=== PATIENT | male | born 1955 | race Two or more races ===

== ENCOUNTER 2024-08-19 14:59 | Inpatient (IN) | payer MEDICARE, MEDICAID ==
[~2024-08-19] VITALS: Ht 165.1 cm; Wt 85.0 kg
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
--- NOTE | 2024-08-19 15:49 | ECG ---
[facility] Test Date: 2024-08-19 Test Time: 15:48:59 Pat Name: DANIKA ESCOBAR Department: ER Room: [address] [place] [address] Gender: M Director Of Clinical Applications: ROMAINE : 1955 Requested By: JESSICA BEAVER Order Number: [id number] Reading MD: Cyrus Nava Measurements Intervals [place] Rate: 69 P: 35 [place]: 174 QRS: -8 QRSD: 149 T: 2 QT: 434 QTc: 465 Interpretive Statements Sinus rhythm Right bundle branch block LVH by voltage Baseline wander in lead(s) I,II,aVR,aVL,V3,V4,V5,V6 Electronically Signed On 08-20-2024 18:26:43 PST by Cyrus Nava Please click the below link to view image of tracing.
[2024-08-19 16:37] LABS: Basophils # (auto) 0 10 ^3/uL (0-0.2); Basophils % (auto) 0.5 % (0.0-2.0); Eosinophils # (auto) 0.1 10 ^3/uL (0-0.8); Eosinophils % (auto) 1.6 % (0.0-7.0); Hematocrit 52.4 % (41.0-53.0); Hemoglobin 17.4 g/dL (13.5-17.5); Lymphocytes # (auto) 1.7 10 ^3/uL (0.4-5.4); Lymphocytes % (auto) 21.9 % (10.0-50.0); Mean Corpuscular Hemoglobin 30.2 pg (28.0-32.0); Mean Corpuscular Hgb Conc. 33.2 g/dL (32.0-36.0); Monocytes # (auto) 0.8 10 ^3/uL (0-1.3); Monocytes % (auto) 10.4 % (0.0-12.0); Neutrophils # (auto) 5.2 10 ^3/uL (1.6-8.6); Neutrophils % (auto) 65.6 % (37.0-80.0); Nucleated Red Blood Cells % 0.1 %; Platelet Count (auto) 179 10^3/uL (140-450); Red Blood Cells 5.76 10^6/uL (4.5-5.90); Red Cell Distribution Width 14.6 % (11.8-14.3)
[2024-08-19 16:53] LABS: Chloride 105 mmol/L (98-107); Potassium 4.3 mmol/L (3.5-5.1); Sodium 141 mmol/L (136-145)
[2024-08-19 16:54] LABS: Anion Gap 7 (5-15); Carbon Dioxide 29 mmol/L (20-31)
[2024-08-19 16:59] LABS: BUN/Creatinine Ratio 14.3 (10.0-20.0); Blood Urea Nitrogen 15 mg/dL (9-23); Glucose 103 mg/dL (74-106)
[2024-08-19 17:07] LABS: Calcium 10.5 mg/dL (8.7-10.4)
--- NOTE | 2024-08-19 17:24 | DVH ---
Chest x-ray Technique: PA and lateral views CLINICAL INDICATION: Shortness of breath FINDINGS: Heart size is enlarged. Aorta is tortuous. No infiltrates or effusions. Scoliosis with de generative changes in the spine IMPRESSION: 1. No acute cardiopulmonary pathology
[2024-08-20] MEDS ORDERED: HYDROcodone-ACET 5/325MG TAB PO PRN
[2024-08-20] MEDS ORDERED: ACETAMINOPHEN 325 MG TAB PO PRN
[2024-08-20] MEDS ORDERED: IPRATROPIUM BROM 0.5 MG/2.5ML INH SOL NEB SCH (00:15)
[2024-08-20] MEDS ORDERED: ALBUTEROL SULF 2.5 MG/0.5ML(0.5%) NEB SOLN NEB SCH (00:15)
--- NOTE | 2024-08-20 00:31 | DVHHPRES ---
History of Present Illness Resident Creating Document: DICK GARG History of Present Illness This is a 69-year-old male with past medical history of hypertension, COPD who presented to the ED with three days of shortness of breath that worsened recently prompting this visit. Patient states recently he has been having shortness of breath associated with cough especially when lying down in bed. The patient stated that he just moved to [facility] from [place] and that her daughter was having flu-like symptoms recently. The patient admits that has been two weeks without taking any blood pressure medications. Initial labs showed an hemoglobin of 17.4 and hematocrit of 52.4 otherwise CMP was grossly unremarkable. Troponins came back negative and BNP was normal range. Initial chest x-ray was grossly unremarkable without evidence of clear consolidations. We will order COVID Angelique antigen test and influenza test. We will start the patient on IV methylprednisolone 40 mg b.i.d., azithromycin and respiratory therapy with albuterol and ipratropium. We will admit the patient for further assessment and management. Medications: Patient states that takes blood pressure medications at home but does not remember the name. Cardiovascular: HTN Pulmonary: COPD Smoke: Quit ALCOHOL: none Drugs: None Lives: with Family Domestic Violence: Neg Review of Systems Constitutional: No: Fever, Chills, Sweats, Weakness, Malaise, Other Eyes: No: Pain, Vision change, Conjunctivae inflammation, Eyelid inflammation, Other, Redness ENT: No: Ear pain, Ear discharge, Nose pain, Nose discharge, Nose congestion, Mouth pain, Mouth swelling, Throat pain, Throat swelling, Other Respiratory: Cough, Shortness of breath, SOB with excertion; No: Dry, Wheezing, Hemoptysis, Pleuritic Pain, Sputum, Wheezing, Other Cardiovascular: No: Chest Pain, Palpitations, Orthopnea, Paroxysmal Noc. Dyspnea, Edema, Lt Headedness, Other Gastrointestinal: No: Nausea, Vomiting, Abdominal Pain, Diarrhea, Constipation, Melena, Hematochezia, Other Genitourinary: No Dysuria, No Frequency, No Incontinence, No Hematuria, No Retention, No Other Musculoskeletal: No: other, neck pain, shoulder pain, arm pain, back pain, hand pain, leg pain, foot pain Skin: No: Rash, Lesions, Jaundice, Bruising, Other Neurological: No: Weakness, Numbness, Incoordination, Change in speech, Confusion, Seizures, Other Allergies: Coded Allergies: Penicillins (Verified Allergy, Unknown, 08/19/24) Medications Current Medications Medications Dose Ordered Sig/Micheal Route Start Time Stop Time Status Last Admin Dose Admin Acetaminophen 650 mg Q6HP PRN PO 08/20/24 00:00 UNV Acetaminophen/ Hydrocodone Bitart 1 tab Q4HP PRN PO 08/20/24 00:00 UNV Exam Vital Signs Vital Signs Date Time Temp Pulse Resp B/P (MAP) Pulse Ox O2 Delivery O2 Flow Rate FiO2 08/19/24 16:09 69 08/19/24 15:15 97.4 20 174/103 (126) 98 155/103 (120) General Appearance: Alert, Oriented X3, Cooperative, No acute distress HEENT: Atraumatic, PERRLA, EOMI, Mucous membr. moist/pink Respiratory: Clear to auscultation, Normal air movement Cardiovascular: Regular rate, Normal S1, Normal S2, No murmurs Abdominal: Normal bowel sounds, Soft, No tenderness, No hepatospenomegaly Extremities: No clubbing, No cyanosis, No edema, Normal pulses, No tenderness/swelling Skin: No rashes, No breakdown, No significant lesion Neuro: Normal gait, Normal speech, Strength at 5/5 X4 ext, Normal tone, Sensation intact, Cranial nerves 3-12 NL, Reflexes 2+ Psych/Mental Status: Mental status NL, Mood NL Labs/Xrays Labs Test 08/19/24 17:34 08/19/24 16:12 Range/Units Troponin I High Sensitivity 17 </=54 ng/L White Blood Count 8.0 4.4-10.8 10^3/uL Red Blood Count 5.76 4.5-5.90 10^6/uL Hemoglobin 17.4 13.5-17.5 g/dL Hematocrit 52.4 41.0-53.0 % Mean Corpuscular Volume 91.0 80.0-100.0 fL Mean Corpuscular Hemoglobin 30.2 28.0-32.0 pg Mean Corpuscular Hemoglobin Concent 33.2 32.0-36.0 g/dL Red Cell Distribution Width 14.6 H 11.8-14.3 % Platelet Count 179 140-450 10^3/uL Mean Platelet Volume 8.9 6.9-10.8 fL Neutrophils (%) (Auto) 65.6 37.0-80.0 % Lymphocytes (%) (Auto) 21.9 10.0-50.0 % Monocytes (%) (Auto) 10.4 0.0-12.0 % Eosinophils (%) (Auto) 1.6 0.0-7.0 % Basophils (%) (Auto) 0.5 0.0-2.0 % Neutrophils # (Auto) 5.2 1.6-8.6 10 ^3/uL Lymphocytes # (Auto) 1.7 0.4-5.4 10 ^3/uL Monocytes # (Auto) 0.8 0-1.3 10 ^3/uL Eosinophils # (Auto) 0.1 0-0.8 10 ^3/uL Basophils # (Auto) 0 0-0.2 10 ^3/uL Nucleated Red Blood Cells 0.1 % Sodium Level 141 136-145 mmol/L Potassium Level 4.3 3.5-5.1 mmol/L Chloride Level 105 98-107 mmol/L Carbon Dioxide Level 29 20-31 mmol/L Anion Gap 7 5-15 Blood Urea Nitrogen 15 9-23 mg/dL Creatinine 1.05 0.700-1.30 mg/dL Glomerular Filtration Rate Calc 78 >90 mL/min BUN/Creatinine Ratio 14.3 10.0-20.0 Serum Glucose 103 74-106 mg/dL Calcium Level 10.5 H 8.7-10.4 mg/dL B-Type Natriuretic Peptide 42.50 0-100 pg/mL Assessment/Plan Assessment/Plan Assessment/Plan Acute respiratory distress likely due to COPD exacerbation R/O CHF -Initial chest x ray was grossly clear -Start methylprednisolone 40 mg IV b.i.d. -start azithromycin -respiratory therapy with albuterol and ipratropium med nebs -ordered influenza A and B test, came back negative -ordered COVID Nanda antigen test, came back negative -Trops came back negative and BNP was on normal range at 42.50 (No hx of CHF) Primary Hypertension -start losartan 50 mg p.o. daily -start amlodipine 10 mg p.o. daily -monitor blood pressure Goals of care discussed with the patient at bedside, full code Plan discussed with Dr. Santos Plan discussed with: Patient My Orders Orders - DICK GARG RESIDENT Procedure Category Date Status Time Admit ADMIT 1/7/25 Transmitted 00:00 Code Status CODE 08/20/24 Transmitted 00:00 Vital Signs [facility] 08/20/24 In Process 00:00 Review Orders With DAVIS 08/20/24 In Process Adm. 00:00 Regular Diet DIET 08/20/24 Transmitted Breakfast Acetaminophen Tablet PHA 08/20/24 Logged (Tylenol Tablet) 00:00 Notify Md Of Changes [facility] 08/20/24 In Process From Base 00:00 Advance Directive DAVIS 08/20/24 In Process 00:00 Urinalysis LAB 08/20/24 Logged 00:00 Lipid Panel LAB 08/20/24 Logged 00:00 Patient Condition ORDERS 08/20/24 Transmitted 00:00 Allergies DAVIS 08/20/24 In Process 00:00 Hydrocodone-Acet PHA 08/20/24 Logged 5/325mg Tab (Watson 00:00 Drug Screen LAB 08/20/24 Logged 00:00 Ambulate Every 4hours DAVIS 08/20/24 In Process 00:00 Hemoglobin A1c LAB 08/20/24 Logged 00:00 Azithromycin 500mg/ PHA 08/20/24 Transmitted 250ml (Zithromax 50 00:15 Methylprednisolone PHA 08/20/24 Transmitted Sod Succ (Solu Medrol 00:15 Albuterol Medneb PHA 08/20/24 Transmitted (Ventolin Medneb) 00:15 Ipratropium Medneb PHA 08/20/24 Transmitted (Atrovent Medneb) 00:15 Date of Service: Aug 20, 2024 Billing Provider: BRYNN SANTOS MD Common Visit Codes: 82384-QNTEVLI INP/OBS CARE (HIGH) Secondary Visit Codes: 46542-[id number] CARE PLAN 30 MINUTES DICK GARG RESIDENT Aug 20, 2024 00:31 BRYNN SANTOS MD Aug 20, 2024 18:48
[2024-08-20 00:44] VITALS: PULSE 105; O2SAT 95
[2024-08-20] MEDS: AZITHROMYCIN 500MG/ 250ML 250 ML IV SCH (00:50)
[2024-08-20] MEDS: amLODIPine BESYLATE 5 MG TAB PO SCH (00:50)
[2024-08-20] MEDS: methylPREDNISolone SOD SUCC 40 MG/ML VL IV SCH (00:50)
[2024-08-20 01:34] VITALS: BP 163/97; PULSE 80; RESP 18; TEMP 97.7; O2SAT 96
[2024-08-20 01:44] VITALS: BP 157/107; PULSE 105; RESP 18; TEMP 98.3; O2SAT 95
[2024-08-20 03:51] LABS: Rapid Influenza A Negative (Negative); Rapid Influenza B Negative (Negative)
[2024-08-20 03:52] LABS: COVID19 ANTIGEN SOFIA FIA NEGATIVE (NEGATIVE)
[2024-08-20] MEDS ORDERED: IPRATROPIUM BROM 0.5 MG/2.5ML INH SOL NEB PRN (06:00)
[2024-08-20] MEDS ORDERED: ALBUTEROL SULF 2.5 MG/0.5ML(0.5%) NEB SOLN NEB PRN (06:00)
[2024-08-20] MEDS ORDERED: LOSARTAN POTASSIUM 50 MG TAB PO SCH (10:00)
== END 2024-08-20 08:30 | disposition left against medical advice (07) | DRG 192 ==
LOC: ER 14:59 → OVERFLOW 08-20
PROVIDERS: ADMIT Internal Medicine; ATTEND Internal Medicine
DX: J44.1 Chronic obstructive pulmonary disease with (acute) exacerbation (principal); I11.0 Hypertensive heart disease with heart failure; I50.9 Heart failure, unspecified; I51.3 Intracardiac thrombosis, not elsewhere classified; Z20.822 Contact with and (suspected) exposure to COVID-19; Z53.29 Procedure and treatment not carried out because of patient's decision for other reasons; Z87.891 Personal history of nicotine dependence; Z88.0 Allergy status to penicillin
CPT/HCPCS: 36415; 71046; 80048; 83880; 84484; 85025; 87426; 87804; 93005; 99291; G0378

== ENCOUNTER 2024-08-23 11:41 | Emergency (ER) | payer MEDICARE, MEDICAID ==
[~2024-08-23] VITALS: Ht 165.1 cm; Wt 89.3 kg
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
[2024-08-23] MEDS ORDERED: CLOT1CRE56 TOP (13:09)
[2024-08-23] MEDS ORDERED: ALBUAER3 IN (13:09)
[2024-08-23 13:42] VITALS: BP 161/104; PULSE 80; RESP 16; O2SAT 97
== END 2024-08-23 13:45 | disposition home or self-care (01) ==
LOC: ER 11:41
DX: N48.1 Balanitis (principal); J44.9 Chronic obstructive pulmonary disease, unspecified; I10 Essential (primary) hypertension; Z88.0 Allergy status to penicillin; Z87.891 Personal history of nicotine dependence

== ENCOUNTER 2024-08-25 10:38 | Inpatient (IN) | payer MEDICARE, MEDICAID ==
[~2024-08-25] VITALS: Ht 165.1 cm; Wt 77.2 kg
[~2024-08-25 10:38] MED LIST: ALBUAER3 IN; CLOT1CRE56 TOP
--- NOTE | 2024-08-25 11:33 | ED.PDOC ---
SOB-HPI HPI Comments 69 y.o male with PMHx of COPD and HTN, presents to the ED for a chief complaint of SOB that started yesterday. Patient reports recently being seen at this ED a couple days ago with same complaint, states he was prescribed medication that has not relieved his SOB and mentions he is not on any home oxygen either. Patient presents with a SPO2 of 95% on room air. Patient states SOB worsens when laying flat and on exertion. He denies any coughs, nausea, vomiting, chest pain, fever or chills. Chief Complaint: Shortness of Breath Time Seen by MD: 11:22 Primary Care Provider: UNKNOWN Reviewed notes: Nurses Notes, Medications, Allergies Information Source: Patient Mode of Arrival: Ambulatory Severity: Moderate Timing: Days (1) Context: With Light Exertion, While Asleep PE Risk Factors: None History of: COPD Modifying Factors: Nothing; Exertion, Laying flat Associated Signs and Symptoms: None Past Medical History PAST MEDICAL HISTORY: COPD, HTN Surgical History: Denies all surgeries Family History Family History: Reviewed,noncontributory to illness, Unknown Social History Smoker: Quit Less Than 1 Year Alcohol: Denies ETOH Use Drugs: Denies Drug Use Lives In: Home Constitutional: denies: chills, diaphoresis, fatigue, fever, malaise, sweats, weakness, others EENTM: denies: blurred vision, double vision, ear bleeding, ear discharge, ear drainage, ear pain, ear ringing, eye pain, eye redness, hearing loss, mouth pain, mouth swelling, nasal discharge, nose bleeding, nose congestion, nose pain, photophobia, tearing, throat pain, throat swelling, voice changes, others Respiratory: reports: SOB at rest, shortness of breath, SOB with excertion; denies: cough, hemoptysis, orthopnea, stridor, wheezing, others Cardiovascular: denies: chest pain, dizzy spells, diaphoresis, Dyspnea on exertion, edema, irregular heart beat, left arm pain, lightheadedness, palpitations, PND, syncope, others Gastrointestinal: denies: abdomen distended, abdominal pain, blood streaked bowels, constipated, diarrhea, dysphagia, difficulty swallowing, hematemesis, melena, nausea, poor appetite, poor fluid intake, rectal bleeding, rectal pain, vomiting, others Genitourinary: denies: burning, dysuria, flank pain, frequency, hematuria, incontinence, penile discharge, penile sore, pain, testicle pain, testicle swelling, urgency, others Neurological: denies: dizziness, fainting, headache, left sided numbness, left sided weakness, numbness, paresthesia, pre-existing deficit, right sided numbness, right sided weakness, seizure, speech problems, tingling, tremors, weakness, others Musculoskeletal: denies: back pain, gout, joint pain, joint swelling, muscle pain, muscle stiffness, neck pain, others Integumetry: denies: bruises, change in color, change in hair/nails, dryness, laceration, lesions, lumps, rash, wounds, others Allergic/Immunocompromised: denies: Difficulty Healing, Frequent Infections, Hives, Itching, others Hematologic/Lymphatic: denies: anemia, blood clots, easy bleeding, easy bruising, swollen glands, others Endocrine: denies: excessive hunger, excessive sweating, excessive thirst, excessive urination, flushing, intolerance to cold, intolerance to heat, unexplained weight gain, unexplained weight loss, others Psychiatric: denies: anxiety, bipolar disorder, depression, hopeless, panic disorder, schizophrenia, sleepless, suicidal, others All Other Systems: Reviewed and Negative Physical Exam General Appearance: Moderate Distress HEENT: Normal ENT Inspection, Pharynx Normal, TMs Normal Neck: Full Range of Motion, Non-Tender, Normal, Normal Inspection Respiratory: Chest Non-Tender, Lungs Clear, No Accessory Muscle Use, No Respiratory Distress, Normal Breath Sounds Cardiovascular: No Edema, No JVD, No Murmur, No Gallop, Normal Peripheral Pulses, Regular Rate/Rhythm Breast Exam: Deferred Gastrointestinal: No Organomegaly, Non Tender, No Pulsatile Mass, Normal Bowel Sounds, Soft Genitalia: Deferred Pelvic: Deferred Rectal: Deferred Extremities: No calf tenderness, Normal capillary refill, No pedal edema Musculoskeletal : Apperance: Normal Neurologic: Alert, crisis counselor II-XII nml as Tested, No Motor Deficits, Normal Affect, Normal Mood, No Sensory Deficits Cerebellar Function: Normal Reflexes: Normal Skin: Dry, Normal Color, Warm Lymphatic: No Adenopathy EKG EKG : Pulse Rate (adult): 72 Edmonds: Normal Cardiac Rhythm: NSR Block: RBBB ST: Nonsp Was a procedure done? Was a procedure done?: No Differential Dx Differential Diagnosis: Asthma, Bronchitis, COPD, Pneumonia, Respiratory Distress, URI X-Ray, Labs, Meds, VS Vital Signs Date Time Temp Pulse Resp B/P (MAP) Pulse Ox O2 Delivery O2 Flow Rate FiO2 08/25/24 15:02 97.8 70 18 141/100 (114) 97 97.8 08/25/24 11:40 72 08/25/24 11:12 98.6 82 18 183/108 (133) 95 08/25/24 11:11 72 Lab Test 08/25/24 14:19 08/25/24 13:12 Range/Units Troponin I High Sensitivity Pending 15 </=54 ng/L White Blood Count 6.0 4.4-10.8 10^3/uL Red Blood Count 5.49 4.5-5.90 10^6/uL Hemoglobin 16.9 13.5-17.5 g/dL Hematocrit 49.9 41.0-53.0 % Mean Corpuscular Volume 90.8 80.0-100.0 fL Mean Corpuscular Hemoglobin 30.7 28.0-32.0 pg Mean Corpuscular Hemoglobin Concent 33.8 32.0-36.0 g/dL Red Cell Distribution Width 14.5 H 11.8-14.3 % Platelet Count 192 140-450 10^3/uL Mean Platelet Volume 8.8 6.9-10.8 fL Neutrophils (%) (Auto) 61.8 37.0-80.0 % Lymphocytes (%) (Auto) 25.2 10.0-50.0 % Monocytes (%) (Auto) 10.0 0.0-12.0 % Eosinophils (%) (Auto) 2.2 0.0-7.0 % Basophils (%) (Auto) 0.8 0.0-2.0 % Neutrophils # (Auto) 3.7 1.6-8.6 10 ^3/uL Lymphocytes # (Auto) 1.5 0.4-5.4 10 ^3/uL Monocytes # (Auto) 0.6 0-1.3 10 ^3/uL Eosinophils # (Auto) 0.1 0-0.8 10 ^3/uL Basophils # (Auto) 0 0-0.2 10 ^3/uL Nucleated Red Blood Cells 0.1 % Sodium Level 141 136-145 mmol/L Potassium Level 4.8 3.5-5.1 mmol/L Chloride Level 106 98-107 mmol/L Carbon Dioxide Level 29 20-31 mmol/L Anion Gap 6 5-15 Blood Urea Nitrogen 14 9-23 mg/dL Creatinine 0.95 0.700-1.30 mg/dL Glomerular Filtration Rate Calc 88 >90 mL/min BUN/Creatinine Ratio 14.7 10.0-20.0 Serum Glucose 116 H 74-106 mg/dL Calcium Level 10.6 H 8.7-10.4 mg/dL B-Type Natriuretic Peptide 37.88 0-100 pg/mL The patient has an IV Hep-Lock in place The CBC and chemistry panel are within normal limits The troponin level x1 is negative The patient was also hypertensive and is being given clonidine for the elevated blood pressure The other diagnosis is accelerated hypertension The patient was being admitted The chest x-ray shows: Cardiomegaly but no sign of any acute disease Images Reviewed?: Images reviewed and evaluated by me Time of 1ST Reevaluation: 11:32 Reevaluation 1ST: Unchanged Patient Education/Counseling: Diagnosis, Treatment, Prognosis Family Education/Counseling: No Family Present Departure 1 Departure Time of Disposition: 15:04 Impression: Primary Impression: Acute respiratory distress Disposition: 09 ADMITTED INPATIENT Admit to: Tele Condition: Fair Critical Care Note Critical Care Time?: No Stability Stability form required: Yes Unstable for transfer: Telemetry monitoring (Telemetry monitoring required), ED Physician Assesment (Clinical assesment) I personally scribed for JESSICA BEAVER MD ([email or web address]) on 08/25/24 at 11:33. Electronically submitted by Hellen Nickerson ([facility]). JESSICA BEAVER MD Aug 25, 2024 11:33
--- NOTE | 2024-08-25 11:34 | ECG ---
[facility] Test Date: 2024-08-25 Test Time: 11:11:14 Pat Name: DANIKA ESCOBAR Department: ER Room: Gender: M Beta Tester: VASYL : 1955 Requested By: JESSICA BEAVER Order Number: [id number] Reading MD: Measurements Intervals Humble Rate: 72 P: 26 GA: 176 QRS: -2 QRSD: 135 T: 4 QT: 400 QTc: 438 Interpretive Statements Sinus rhythm Right bundle branch block LVH by voltage Inferior infarct, old Lateral leads are also involved Baseline wander in lead(s) V5 Please click the below link to view image of tracing.
--- NOTE | 2024-08-25 12:20 | DVH ---
CHEST RADIOGRAPH Indication: sob Technique: Frontal and lateral view of the chest was obtained Comparison: XY CHEST TWO VIEWS ROUTINE on DOS: 08/19/24 FINDINGS: Lines and Tubes: None Lungs: Clear Pleura: No effusion. No pneumothorax. Cardiomediastinal contours: Enlarged. Bones: Osseous degenerative changes. IMPRESSION: 1. No evidence of acute disease. 2. Cardiomegaly.
[2024-08-25 13:58] LABS: Basophils # (auto) 0 10 ^3/uL (0-0.2); Basophils % (auto) 0.8 % (0.0-2.0); Eosinophils # (auto) 0.1 10 ^3/uL (0-0.8); Eosinophils % (auto) 2.2 % (0.0-7.0); Hematocrit 49.9 % (41.0-53.0); Hemoglobin 16.9 g/dL (13.5-17.5); Lymphocytes # (auto) 1.5 10 ^3/uL (0.4-5.4); Lymphocytes % (auto) 25.2 % (10.0-50.0); Mean Corpuscular Hemoglobin 30.7 pg (28.0-32.0); Mean Corpuscular Hgb Conc. 33.8 g/dL (32.0-36.0); Mean Corpuscular Volume 90.8 fL (80.0-100.0); Monocytes # (auto) 0.6 10 ^3/uL (0-1.3); Neutrophils # (auto) 3.7 10 ^3/uL (1.6-8.6); Neutrophils % (auto) 61.8 % (37.0-80.0); Nucleated Red Blood Cells % 0.1 %; Platelet Count (auto) 192 10^3/uL (140-450); Red Blood Cells 5.49 10^6/uL (4.5-5.90); Red Cell Distribution Width 14.5 % (11.8-14.3)
[2024-08-25 14:02] LABS: Chloride 106 mmol/L (98-107); Potassium 4.8 mmol/L (3.5-5.1); Sodium 141 mmol/L (136-145)
[2024-08-25 14:03] LABS: Anion Gap 6 (5-15); Calcium 10.6 mg/dL (8.7-10.4); Carbon Dioxide 29 mmol/L (20-31)
[2024-08-25 14:09] LABS: BUN/Creatinine Ratio 14.7 (10.0-20.0); Blood Urea Nitrogen 14 mg/dL (9-23)
[2024-08-25 14:31] LABS: Glucose 116 mg/dL (74-106)
[2024-08-25] MEDS ORDERED: ALBUTEROL SULF 2.5 MG/0.5ML(0.5%) NEB SOLN NEB PRN (20:00)
[2024-08-25] MEDS ORDERED: TEMAZEPAM 15 MG CAP PO PRN (20:00)
[2024-08-25] MEDS ORDERED: IPRATROPIUM BROM 0.5 MG/2.5ML INH SOL NEB PRN (20:00)
[2024-08-25] MEDS ORDERED: ONDANSETRON HCL 4 MG/2 ML VIAL IV PRN (20:00)
[2024-08-25] MEDS ORDERED: ACETAMINOPHEN 325 MG TAB PO PRN (20:00)
[2024-08-25 20:23] VITALS: PULSE 103; RESP 16; O2SAT 98
[2024-08-25 21:00] VITALS: BP 147/102; PULSE 95; TEMP 98.2; O2SAT 95
[2024-08-25] MEDS: FUROSEMIDE 40 MG TAB PO ONE (21:06)
[2024-08-25 21:53] VITALS: BP 156/93; PULSE 95; RESP 18; TEMP 97.8; O2SAT 96
[2024-08-25 22:08] VITALS: BP 156/93; PULSE 88; RESP 16; O2SAT 97
--- NOTE | 2024-08-25 22:42 | DVHHP2 ---
History of Present Illness Reason for Visit: Shortness of breath History of Present Illness 69-year-old male presents for evaluation of shortness for breath. Patient reports a two day history mouth worsening shortness for breath with mild exertion. Does have a history of COPD. Reports inhalers not helping with the symptoms. Denies chest pain or palpitations. No nausea or vomiting. No cough or fever. Past Medical History Hypertension and COPD Past Surgical History Denies Family History Noncontributory Smoke: No ALCOHOL: none Drugs: None Lives: with Family Review of Systems Review of Systems Review of systems are currently negative otherwise addressed in HPI. Allergies: Coded Allergies: Penicillins (Verified Allergy, Unknown, 08/19/24) Medications Current Medications Medications Dose Ordered Sig/Micheal Route Start Time Stop Time Status Last Admin Dose Admin Amlodipine Besylate 10 mg DAILY PO 08/26/24 10:00 Furosemide 20 mg DAILY PO 08/26/24 10:00 Albuterol 2.5 mg Q6HPRN PRN NEB 08/25/24 20:00 Ipratropium Needles 0.5 mg Q6HPRN PRN NEB 08/25/24 20:00 Losartan Potassium 50 mg DAILY PO 08/26/24 10:00 Temazepam 15 mg QHSP PRN PO 08/25/24 20:00 Ondansetron HCl 4 mg Q4HP PRN IV 08/25/24 20:00 Enoxaparin Sodium 40 mg DAILY SC 08/26/24 10:00 Acetaminophen 650 mg Q6HP PRN PO 08/25/24 20:00 Exam Vital Signs Vital Signs Date Time Temp Pulse Resp B/P (MAP) Pulse Ox O2 Delivery O2 Flow Rate FiO2 08/25/24 22:19 Room Air* 0 21 08/25/24 22:08 88 16 156/93 (114) 97 08/25/24 21:53 97.8 97.8 Exam Gen: 69-year-old male in mild distress Skin: Warm, dry, normal color and texture, no rash. HEENT: Normocephalic atraumatic, mucous membranes moist and pink. Neck: Cervical and supraclavicular nodes normal without enlargement, trachea is midline, thyroid gland is normal without masses. Pulmonary: Diminished breath sounds bilaterally Cardiac: Regular rate and rhythm. No murmur Abdomen: Soft, nontender, nondistended, bowel sounds present all 4 quadrants, no guarding, no rigidity, no organomegaly. Extremities: No cyanosis, clubbing, no edema Neuro: Cranial nerves II through XII grossly intact, normal affect and speech, no focal motor deficits. Labs/Xrays ORDERING PHYSICIAN: JESSICA BEAVER MD PROCEDURE(s): CXR2 - CHEST TWO VIEWS ROUTINE REASON: sob ORDER NUMBER(s): [id number], ACCESSION NUMBER(s): [id number] CHEST RADIOGRAPH Indication: sob Technique: Frontal and lateral view of the chest was obtained Comparison: XY CHEST TWO VIEWS ROUTINE on DOS: 08/19/24 FINDINGS: Lines and Tubes: None Lungs: Clear Pleura: No effusion. No pneumothorax. Cardiomediastinal contours: Enlarged. Bones: Osseous degenerative changes. IMPRESSION: 1. No evidence of acute disease. 2. Cardiomegaly. Labs Test 08/25/24 14:19 08/25/24 13:12 Range/Units Troponin I High Sensitivity 14 </=54 ng/L White Blood Count 6.0 4.4-10.8 10^3/uL Red Blood Count 5.49 4.5-5.90 10^6/uL Hemoglobin 16.9 13.5-17.5 g/dL Hematocrit 49.9 41.0-53.0 % Mean Corpuscular Volume 90.8 80.0-100.0 fL Mean Corpuscular Hemoglobin 30.7 28.0-32.0 pg Mean Corpuscular Hemoglobin Concent 33.8 32.0-36.0 g/dL Red Cell Distribution Width 14.5 H 11.8-14.3 % Platelet Count 192 140-450 10^3/uL Mean Platelet Volume 8.8 6.9-10.8 fL Neutrophils (%) (Auto) 61.8 37.0-80.0 % Lymphocytes (%) (Auto) 25.2 10.0-50.0 % Monocytes (%) (Auto) 10.0 0.0-12.0 % Eosinophils (%) (Auto) 2.2 0.0-7.0 % Basophils (%) (Auto) 0.8 0.0-2.0 % Neutrophils # (Auto) 3.7 1.6-8.6 10 ^3/uL Lymphocytes # (Auto) 1.5 0.4-5.4 10 ^3/uL Monocytes # (Auto) 0.6 0-1.3 10 ^3/uL Eosinophils # (Auto) 0.1 0-0.8 10 ^3/uL Basophils # (Auto) 0 0-0.2 10 ^3/uL Nucleated Red Blood Cells 0.1 % Sodium Level 141 136-145 mmol/L Potassium Level 4.8 3.5-5.1 mmol/L Chloride Level 106 98-107 mmol/L Carbon Dioxide Level 29 20-31 mmol/L Anion Gap 6 5-15 Blood Urea Nitrogen 14 9-23 mg/dL Creatinine 0.95 0.700-1.30 mg/dL Glomerular Filtration Rate Calc 88 >90 mL/min BUN/Creatinine Ratio 14.7 10.0-20.0 Serum Glucose 116 H 74-106 mg/dL Calcium Level 10.6 H 8.7-10.4 mg/dL B-Type Natriuretic Peptide 37.88 0-100 pg/mL Assessment/Plan Assessment/Plan Assessment Acute on chronic respiratory failure COPD exacerbation Accelerated hypertension Cardiomegaly Plan Admit the patient to Med surge to the hospitalist Resume home medications Echocardiogram pending Med nebs Continue treatment per orders. Plan discussed with: Patient My Orders Orders - KALA CHRISTENSEN Procedure Category Date Status Time Basic Metabolic Panel LAB 08/26/24 Verified 04:00 Amlodipine Tablet PHA 08/26/24 In Process (Norvasc Tablet) 10:00 Furosemide Tablet PHA 08/26/24 In Process (Lasix Tablet) 10:00 Albuterol Medneb PHA 08/25/24 In Process (Ventolin Medneb) 20:00 Ipratropium Medneb PHA 08/25/24 In Process (Atrovent Medneb) 20:00 Losartan Tablet PHA 08/26/24 In Process (Cozaar Tablet) 10:00 Admit ADMIT 08/25/24 Transmitted 19:51 Temazepam (Restoril) PHA 08/25/24 In Process 20:00 Ondansetron Hcl PHA 08/25/24 In Process (Zofran) 20:00 Enoxaparin Sodium PHA 08/26/24 In Process (Lovenox) 10:00 Complete Blood Count LAB 08/26/24 Verified 04:00 Cardiac DIET 08/26/24 Transmitted Diet-2gna,Lofat,Lochol Breakfast Echo 2d Mode Cardiac US 08/25/24 Logged DOP 19:51 Condition: Stable DAVIS 08/25/24 In Process 19:51 Acetaminophen Tablet PHA 08/25/24 In Process (Tylenol Tablet) 20:00 Bedrest With Bathroom DAVIS 08/25/24 In Process Privileg 19:51 Date of Service: Aug 25, 2024 Billing Provider: KALA CHRISTENSEN Common Visit Codes: [id number] INP/OBS CARE (HIGH) KALA CHRISTENSEN Aug 25, 2024 22:42
[2024-08-26] VITALS (9 sets, daily range): BP systolic 124–158; BP diastolic 80–99; PULSE 73–92; RESP 17–20; TEMP 97.7–98.4; O2SAT 92–98
[2024-08-26 07:47] LABS: Anion Gap 9 (5-15); Carbon Dioxide 27 mmol/L (20-31); Chloride 104 mmol/L (98-107); Potassium 4.1 mmol/L (3.5-5.1); Sodium 140 mmol/L (136-145)
[2024-08-26 07:48] LABS: Basophils # (auto) 0 10 ^3/uL (0-0.2); Basophils % (auto) 0.6 % (0.0-2.0); Eosinophils # (auto) 0.2 10 ^3/uL (0-0.8); Eosinophils % (auto) 2.7 % (0.0-7.0); Hematocrit 46.6 % (41.0-53.0); Lymphocytes # (auto) 1.8 10 ^3/uL (0.4-5.4); Lymphocytes % (auto) 24.5 % (10.0-50.0); Mean Corpuscular Hemoglobin 30.9 pg (28.0-32.0); Mean Corpuscular Hgb Conc. 34.2 g/dL (32.0-36.0); Mean Corpuscular Volume 90.3 fL (80.0-100.0); Monocytes # (auto) 0.8 10 ^3/uL (0-1.3); Neutrophils # (auto) 4.6 10 ^3/uL (1.6-8.6); Neutrophils % (auto) 61.2 % (37.0-80.0); Nucleated Red Blood Cells % 0.3 %; Platelet Count (auto) 183 10^3/uL (140-450); Red Blood Cells 5.16 10^6/uL (4.5-5.90); Red Cell Distribution Width 14.7 % (11.8-14.3); White Blood Cell 7.5 10^3/uL (4.4-10.8)
[2024-08-26 07:53] LABS: BUN/Creatinine Ratio 12.8 (10.0-20.0); Blood Urea Nitrogen 12 mg/dL (9-23); Glucose 105 mg/dL (74-106)
[2024-08-26] MEDS: amLODIPine BESYLATE 5 MG TAB PO SCH (09:31)
[2024-08-26] MEDS: LOSARTAN POTASSIUM 50 MG TAB PO SCH (09:32)
[2024-08-26] MEDS: FUROSEMIDE 20 MG TAB PO SCH (09:32)
[2024-08-26] MEDS: ENOXAPARIN SOD 40 MG/0.4 ML SYRINGE SC SCH (09:34)
--- NOTE | 2024-08-26 11:32 | DVHSR ---
APPROVED REPORT EXAM: Two-dimensional and M-mode echocardiogram with Doppler and color Doppler. Blood Pressure: 145/89 mmHg INDICATION EF RISK FACTORS Height: 65, Weight: 170 DIMENSIONS LVDd3.8 (3.8-5.7cm)LA (2D)3.5 (1.9-4.0cm)Aortic Root3.7 (2.0-3.7cm) LVDs2.5 (2.5-4.0cm)LA (MM) (1.9-4.0cm)Aortic Cusp Exc1.9 (1.5-2.0cm) EF (%) 62.0 (55-70%)Rt. Atrium3.5 (1.9-4.0cm)Asc. Aorta cm Mitral Valve MitralMitral Stenosis E wave0.46m/sMV Mean GR.mmHg A wave0.88m/sMV Peak GR.mmHg E/A ratio0.52D MVAcm2 DECEL [id number] 1/2 Zlmb52ig IVRTmsDop MVA4.23cm2 Aortic Valve Aortic ValveAortic Stenosis V11.33m/Mary Mean GR.4mmHg V21.49m/Mary Peak GR.9mmHg LVOT Diameter1.9 (1.8-2.4cm)Doppler AVA2.53cm2 AI P 1/2 Dcaj490.92ms LEFT VENTRICLE Normal left ventricular size. Wall thickness is normal. Ejection fraction is normal and is estimate d at 60-65%. No regional wall motion abnormalities. There is impaired relaxation of the left ventri pari. E to E prime ratio is in the normal range. RIGHT VENTRICLE Normal right ventricular size and systolic function. ATRIA Both atria are of normal size. MITRAL VALVE Normal structure and function. No significant mitral regurgitation. PULMONIC VALVE Not visualized. TRICUSPID VALVE Not well visualized. No evidence of significant tricuspid regurgitation. PA systolic pressure is no t adequately estimated. AORTIC VALVE Not well visualized. There is probable [id number] aortic insufficiency. GREAT VESSELS The aortic root is of normal size. Proximal ascending aorta isn't visualized. PERICARDIAL EFFUSION No evidence of pericardial effusion. IVC is of normal size and collapses normally with inspiration. Other Information Technically limited study due to body habitus. Conclusion Study is technically limited. Normal left ventricular size and systolic function. Ejection fraction is estimated at 60-65%. Normal right ventricular size and systolic function. Aortic valve is not well visualized. There is evidence of [id number] aortic insufficiency. PA systolic pressure is not adequately estimated. No pericardial effusion.
[2024-08-26] MEDS: KETOROLAC TROMETH 30 MG/ML 1ML VIAL IV PRN (12:28)
--- NOTE | 2024-08-26 16:32 | DVHPNRES ---
Progress Note Date Seen: Aug 26, 2024 Resident Creating Document: RAYMUNDO DALEY RESIDENT Medical Necessity Reason Pt with a Central, PICC or Fol: No Subjective Review of Systems This is a 69-year-old male with a past medical history of Hypertension and COPD who presented to the ED with shortness for breath. According to the patient, He reports a two day history worsening shortness of breath with mild exertion and did not improved after using his inhaler. He denied cough, fever, palpitations, nausea or vomiting. Patient also reported pain in his penis and unable to move. In the ED, vitals were within normal limits and blood work was also unremarkable. BNP: 37.88 and troponin was14 Objective vital signs Vital Sign Date Time Temp Pulse Resp B/P (MAP) Pulse Ox O2 Delivery O2 Flow Rate FiO2 08/26/24 12:00 98.2 86 20 124/81 (95) 94 98.2 08/26/24 09:35 Room Air* 0 21 Total Intake and Output 08/25/24 08/25/24 08/26/24 15:00 23:00 07:00 Intake Total 1000 ml Balance 1000 ml medications Current Medications Medications Dose Ordered Sig/Micheal Route Start Time Stop Time Status Last Admin Dose Admin Amlodipine Besylate 10 mg DAILY PO 08/26/24 10:00 08/26/24 09:31 10 MG Furosemide 20 mg DAILY PO 08/26/24 10:00 08/26/24 09:32 20 MG Albuterol 2.5 mg Q6HPRN PRN NEB 08/25/24 20:00 Ipratropium [place] 0.5 mg Q6HPRN PRN NEB 08/25/24 20:00 Losartan Potassium 50 mg DAILY PO 08/26/24 10:00 08/26/24 09:32 50 MG Temazepam 15 mg QHSP PRN PO 08/25/24 20:00 Ondansetron HCl 4 mg Q4HP PRN IV 08/25/24 20:00 Enoxaparin Sodium 40 mg DAILY SC 08/26/24 10:00 Acetaminophen 650 mg Q6HP PRN PO 08/25/24 20:00 Ketorolac Tromethamine 15 mg Q6HPRN PRN IV 08/26/24 12:15 08/31/24 12:14 08/26/24 12:28 15 MG Examination General Appearance: Alert, Oriented X3, Cooperative, No acute distress HEENT: Atraumatic, PERRLA, EOMI, Mucous membrane moist/pink Respiratory: Clear to auscultation, Normal air movement Cardiovascular: Regular rate, Normal S1, Normal S2, No murmurs, no chest wall tenderness Abdominal: NO distention, no tenderness, bowel sounds present, no scars noted Extremities: No clubbing, No cyanosis, No edema, Normal pulses, No tenderness/swelling Skin: No rashes, No breakdown, No significant lesion Neuro: Normal gait, Normal speech, Strength at 5/5 X4 ext, Normal tone, Sensation intact, Cranial nerves 3-12 NL, Reflexes 2+ Psych/Mental Status: Mental status NL, Mood NL Genitalia: Normal anatomy erythematous and edematous glans of penis rubber band double tied cut into the skin causing severe pain laboratory and microbiology Laboratory Tests 08/26/24 06:55 Test 08/26/24 06:55 Range/Units Serum Glucose 105 74-106 mg/dL Problem List/Assessment/Plan Problem List/Assessment/Plan Assessment COPD exacerbation Acute on chronic respiratory failure Hypertensive urgency Cardiomegaly Diabetes Mellitus Penile Cellulitis secondary to trauma from rubber band Chest x-ray: Cardiomediastinal contours: Enlarged. Echo (08/26/2024): EF: 65 % Plan Rubber band removed from the neck of the glans of penis Pending: Influenza and Covid testing Continue Ipratropium/albuterol Urology consult Increase Losartan to 100mg Continue furosemide Urinalysis--> Pending UDS--> Pending Code status: Full code Care discussed for more than 35 minute He has discussed with Plan discussed with: Patient My Orders My Orders Orders - RAYMUNDO DALEY Procedure Category Date Status Time Covid19 Antigen Angelique LAB 08/26/24 Logged Rapid Influenza A&B LAB 08/26/24 Logged 07:43 Ketorolac Injection PHA 08/26/24 In Process (Toradol Injection) 12:15 * Urology Consult CONS 08/26/24 Transmitted 12:50 Date of Service: Aug 26, 2024 Billing Provider: KARI CAIN MD Common Visit Codes: [id number] INP/OBS CARE(HIGH) RAYMUNDO DALEY Aug 26, 2024 16:32 KARI CAIN MD Aug 27, 2024 07:27
[2024-08-27 03:18] LABS: COVID19 ANTIGEN SOFIA FIA NEGATIVE (NEGATIVE); Rapid Influenza A Negative (Negative); Rapid Influenza B Negative (Negative)
[2024-08-27 05:00] VITALS: BP 128/86; PULSE 84; RESP 17; TEMP 98.3; O2SAT 97
[2024-08-27 08:00] VITALS: PULSE 76; RESP 18; O2SAT 96
[2024-08-27 08:30] VITALS: O2SAT 94
[2024-08-27 08:59] VITALS: BP 125/86; PULSE 76; RESP 18; TEMP 97.5; O2SAT 96
[2024-08-27] MEDS: LOSARTAN POTASSIUM 50 MG TAB PO SCH (10:12)
[2024-08-27 11:14] LABS: Urine Bacteria FEW /hpf (None Seen); Urine Blood Negative /uL (Negative); Urine Clarity Turbid (Clear); Urine Color Yellow (Yellow); Urine Hyaline Cast MANY /lpf (0 - 2); Urine Mucus FEW (None Seen); Urine Protein, UAD TRACE (Negative); Urine Specific Gravity 1.031 (1.001-1.035); Urine Squamous Epithelial Cell FEW /hpf (<5); Urine Urobilinogen Normal (Negative); Urine WBC 8 /hpf (0 - 3)
[2024-08-27 11:53] LABS: Amphetamine Screen, Urine Neg (NEGATIVE); Barbiturate Scree,Urine Neg (NEGATIVE); Benzodiazephine Screen, Urine Neg (NEGATIVE); Cannabinoid Screen, Urine Neg (NEGATIVE); Cocaine Screen, Urine Neg (NEGATIVE); Opiate Scree,Urine Neg (NEGATIVE); Phencyclidine Screen, Urine Neg (NEGATIVE)
--- NOTE | 2024-08-27 12:14 | DVHINCON2 ---
Date of service: Aug 27, 2024 Referring Physician hospitalist Reason for Consultation rubber band around penis History of Present Illness History Source: Patient Exam Limitations: No limitations HPI 69 yo male admitted for dyspnea. Pt incidentally was found to have a rubber back around the head of the penis. pt would not explain the reason for doing this, instead he states it was a condom that broke. The object at the bedside was clearly a rubber band. He has no voiding concern. Home Meds Active Scripts Albuterol Sulfate (VENTOLIN MDI) 90 Mcg Ih, 90 MCG IN Q4HP PRN, #1 INH Prov:ZURI SOTO MD 08/23/24 Clotrimazole (Lotrimin) 1 Applic Ap, 1 APPLIC TOP BID for 10 Days, #1 APPLIC Prov:ZURI SOTO MD 08/23/24 Past Medical History Patient Family History: Patient reports no known family medical history. Review of Systems Constitutional: No symptom reported Ears, Nose, & Throat: No symptom reported Eyes: No symptom reported Pulmonary/Respiratory: No symptom reported Cardiovascular: No symptom reported Gastrointestinal: No symptom reported Genitourinary: No symptom reported Musculoskeletal: No symptom reported Skin: No symptom reported Psychiatric: No symptom reported Endocrine: No symptom reported Hemotologic/Lymphatic: No symptom reported H&P Exam Vital Signs Vital Signs Date Time Temp Pulse Resp B/P (MAP) Pulse Ox O2 Delivery O2 Flow Rate FiO2 08/27/24 10:12 125/86 08/27/24 08:59 97.5 76 18 96 97.5 08/27/24 08:30 Nasal Cannula 0.0 08/27/24 08:30 21 General Appeara: Well developed, Well nourished, Normal Appearance Appearance: Appropriate appearance, Appropriate insight Skin Exam: Normal inspection, Normal color, Warm/dry Comments pt refused exam Labs/Xrays Labs Test 08/27/24 10:30 08/27/24 02:15 08/26/24 06:55 08/25/24 14:19 Range/Units Urine Color Yellow Yellow Urine Clarity Turbid H Clear Urine pH 5.0 5.0-9.0 Urine Specific [place] 1.031 1.001-1.035 Urine Protein Trace H Negative Urine Ketones Negative Negative Urine Blood Negative Negative /uL Urine Nitrite Negative Negative Urine Bilirubin Negative Negative Urine Urobilinogen Normal Negative mg/dL Urine Leukocyte Esterase Trace Negative /uL Urine RBC 11 0 - 3 /hpf Urine WBC 8 0 - 3 /hpf Urine Squamous Epithelial Cells Few <5 /hpf Urine Bacteria Few H None Seen /hpf Urine Hyaline Casts Many 0 - 2 /lpf Urine Mucus Few None Seen Urine Glucose Normal Normal mg/dL Urine Opiates Screen Neg NEGATIVE Urine Fentanyl Screen Neg NEGATIVE Urine Barbiturates Screen Neg NEGATIVE Urine Phencyclidine Screen Neg NEGATIVE Urine Amphetamines Screen Neg NEGATIVE Urine Benzodiazepines Screen Neg NEGATIVE Urine Cocaine Screen Neg NEGATIVE Urine Cannabinoids Screen Neg NEGATIVE Influenza Type A Antigen Negative Negative Influenza Type B Antigen Negative Negative SARS-CoV-2 Antigen (Rapid) Negative NEGATIVE White Blood Count 7.5 4.4-10.8 10^3/uL Red Blood Count 5.16 4.5-5.90 10^6/uL Hemoglobin 16.0 13.5-17.5 g/dL Hematocrit 46.6 41.0-53.0 % Mean Corpuscular Volume 90.3 80.0-100.0 fL Mean Corpuscular Hemoglobin 30.9 28.0-32.0 pg Mean Corpuscular Hemoglobin Concent 34.2 32.0-36.0 g/dL Red Cell Distribution Width 14.7 H 11.8-14.3 % Platelet Count 183 140-450 10^3/uL Mean Platelet Volume 8.8 6.9-10.8 fL Neutrophils (%) (Auto) 61.2 37.0-80.0 % Lymphocytes (%) (Auto) 24.5 10.0-50.0 % Monocytes (%) (Auto) 11.0 0.0-12.0 % Eosinophils (%) (Auto) 2.7 0.0-7.0 % Basophils (%) (Auto) 0.6 0.0-2.0 % Neutrophils # (Auto) 4.6 1.6-8.6 10 ^3/uL Lymphocytes # (Auto) 1.8 0.4-5.4 10 ^3/uL Monocytes # (Auto) 0.8 0-1.3 10 ^3/uL Eosinophils # (Auto) 0.2 0-0.8 10 ^3/uL Basophils # (Auto) 0 0-0.2 10 ^3/uL Nucleated Red Blood Cells 0.3 % Sodium Level 140 136-145 mmol/L Potassium Level 4.1 3.5-5.1 mmol/L Chloride Level 104 98-107 mmol/L Carbon Dioxide Level 27 20-31 mmol/L Anion Gap 9 5-15 Blood Urea Nitrogen 12 9-23 mg/dL Creatinine 0.94 0.700-1.30 mg/dL Glomerular Filtration Rate Calc 89 >90 mL/min BUN/Creatinine Ratio 12.8 10.0-20.0 Serum Glucose 105 74-106 mg/dL Hemoglobin A1c 6.0 H <5.7 % A1C Calcium Level 10.0 8.7-10.4 mg/dL Troponin I High Sensitivity 14 </=54 ng/L Test 08/25/24 13:12 Range/Units B-Type Natriuretic Peptide 37.88 0-100 pg/mL Assessment/Plan Problem List: (1) External constriction due to rubber band (2) Balanitis Plan outpt f/u as needed urology signing off Plan discussed with: Patient BARTEITAN HOLLINGSWORTHFAWN GANNON Aug 27, 2024 12:14
[2024-08-27 13:00] VITALS: BP 127/83; PULSE 73; RESP 18; TEMP 97.4; O2SAT 98
[2024-08-27] MEDS ORDERED: CEPH500T PO (14:51)
--- NOTE | 2024-08-27 14:52 | DVHDSRES ---
Discharge Summary Date of Admission Resident Creating Document: RAYMUNDO DALEY RESIDENT Aug 25, 2024 at 19:51 Date of Discharge: Aug 27, 2024 Admitting Diagnosis COPD exacerbation Acute on chronic respiratory failure Labs/Diagnostic Data: Laboratory Results Test 08/27/24 10:30 08/27/24 02:15 08/26/24 06:55 08/25/24 14:19 Urine Color Yellow (Yellow) Urine Clarity Turbid (Clear) Urine pH 5.0 (5.0-9.0) Urine Specific [place] 1.031 (1.001-1.035) Urine Protein Trace (Negative) Urine Ketones Negative (Negative) Urine Blood Negative /uL (Negative) Urine Nitrite Negative (Negative) Urine Bilirubin Negative (Negative) Urine Urobilinogen Normal mg/dL (Negative) Urine Leukocyte Esterase Trace /uL (Negative) Urine RBC 11 /hpf (0 - 3) Urine WBC 8 /hpf (0 - 3) Urine Squamous Epithelial Cells Few /hpf (<5) Urine Bacteria Few /hpf (None Seen) Urine Hyaline Casts Many /lpf (0 - 2) Urine Mucus Few (None Seen) Urine Glucose Normal mg/dL (Normal) Urine Opiates Screen Neg (NEGATIVE) Urine Fentanyl Screen Neg (NEGATIVE) Urine Barbiturates Screen Neg (NEGATIVE) Urine Phencyclidine Screen Neg (NEGATIVE) Urine Amphetamines Screen Neg (NEGATIVE) Urine Benzodiazepines Screen Neg (NEGATIVE) Urine Cocaine Screen Neg (NEGATIVE) Urine Cannabinoids Screen Neg (NEGATIVE) Influenza Type A Antigen Negative (Negative) Influenza Type B Antigen Negative (Negative) SARS-CoV-2 Antigen (Rapid) Negative (NEGATIVE) White Blood Count 7.5 10^3/uL (4.4-10.8) Red Blood Count 5.16 10^6/uL (4.5-5.90) Hemoglobin 16.0 g/dL (13.5-17.5) Hematocrit 46.6 % (41.0-53.0) Mean Corpuscular Volume 90.3 fL (80.0-100.0) Mean Corpuscular Hemoglobin 30.9 pg (28.0-32.0) Mean Corpuscular Hemoglobin Concent 34.2 g/dL (32.0-36.0) Red Cell Distribution Width 14.7 % (11.8-14.3) Platelet Count 183 10^3/uL (140-450) Mean Platelet Volume 8.8 fL (6.9-10.8) Neutrophils (%) (Auto) 61.2 % (37.0-80.0) Lymphocytes (%) (Auto) 24.5 % (10.0-50.0) Monocytes (%) (Auto) 11.0 % (0.0-12.0) Eosinophils (%) (Auto) 2.7 % (0.0-7.0) Basophils (%) (Auto) 0.6 % (0.0-2.0) Neutrophils # (Auto) 4.6 10 ^3/uL (1.6-8.6) Lymphocytes # (Auto) 1.8 10 ^3/uL (0.4-5.4) Monocytes # (Auto) 0.8 10 ^3/uL (0-1.3) Eosinophils # (Auto) 0.2 10 ^3/uL (0-0.8) Basophils # (Auto) 0 10 ^3/uL (0-0.2) Nucleated Red Blood Cells 0.3 % Sodium Level 140 mmol/L (136-145) Potassium Level 4.1 mmol/L (3.5-5.1) Chloride Level 104 mmol/L (98-107) Carbon Dioxide Level 27 mmol/L (20-31) Anion Gap 9 (5-15) Blood Urea Nitrogen 12 mg/dL (9-23) Creatinine 0.94 mg/dL (0.700-1.30) Glomerular Filtration Rate Calc 89 mL/min (>90) BUN/Creatinine Ratio 12.8 (10.0-20.0) Serum Glucose 105 mg/dL (74-106) Hemoglobin A1c 6.0 % A1C (<5.7) Calcium Level 10.0 mg/dL (8.7-10.4) Troponin I High Sensitivity 14 ng/L (</=54) Test 08/25/24 13:12 B-Type Natriuretic Peptide 37.88 pg/mL (0-100) Other Laboratory Tests 08/26/24 06:55 Brief Hx & Hospital Course: Hospital course: This 69-year-old male with a past medical history of Hypertension and COPD presented to [facility] with shortness of breath and penile pain. At home, patient used his inhaler but did not see any improvement. Therefore he presented to the ED for evaluation. In the ED patient denied any fever, palpitation, nausea vomiting; however, he did have a cough. Initial vitals showed elevated BP 183/108, lab values were grossly unremarkable, BNP was 37.88, troponin was 14. Hematological and chemistry were grossly unremarkable. Hgb A1c is 6.0. Patient was admitted and managed for acute on chronic respiratory failure secondary to COPD exacerbation and hypertensive urgency. Patient was also managed for balanitis due to self inflicted trauma to penis with a rubber band tied around the neck of the penis. This was removed and urology consulted for assessment prior to discharge. He was assessed by the urology team and they recommended an out patient follow up. Patient is allergic to penicillin. Therefore, we gave him clindamycin 150mg tid for 5 days. Admission diagnosis: COPD exacerbation, penile pain Examination General Appearance: Alert, Oriented X3, Cooperative, No acute distress HEENT: Atraumatic, PERRLA, EOMI, Mucous membrane moist/pink Respiratory: Clear to auscultation, Normal air movement Cardiovascular: Regular rate, Normal S1, Normal S2, No murmurs, no chest wall tenderness Abdominal: NO distention, no tenderness, bowel sounds present, no scars noted Extremities: No clubbing, No cyanosis, No edema, Normal pulses, No tenderness/swelling Genitals: balanitis, open circumferential wound at the neck of the penis Skin: No rashes, No breakdown, No significant lesion Neuro: Normal gait, Normal speech, Strength at 5/5 X4 ext, Normal tone, Sensation intact, Cranial nerves 3-12 NL, Reflexes 2+ Psych/Mental Status: Mental status NL, Mood NL Diagnoses COPD exacerbation Acute on chronic respiratory failure Hypertensive urgency Cardiomegaly prediabetes Balanitis hypertension Discharge Plan Continue Clindamycin 150 mg tid for 5 days Follow up at the discharge clinic in 7 days Follow up with the urology team in 1-2 weeks Advised patient to stop smoking Advised to return to the ED if condition gets worse. Care discussed for more than 25 minute Case and discharge planning discussed with Dr. Varner Consults/Reason for consult Reason for Consultation: rubber band around penis Operations or Procedures ORDERING PHYSICIAN: JESSICA BEAVER MD PROCEDURE(s): CXR2 - CHEST TWO VIEWS ROUTINE REASON: sob ORDER NUMBER(s): [id number], ACCESSION NUMBER(s): [id number] CHEST RADIOGRAPH Indication: sob Technique: Frontal and lateral view of the chest was obtained Comparison: XY CHEST TWO VIEWS ROUTINE on DOS: 08/19/24 FINDINGS: Lines and Tubes: None Lungs: Clear Pleura: No effusion. No pneumothorax. Cardiomediastinal contours: Enlarged. Bones: Osseous degenerative changes. IMPRESSION: 1. No evidence of acute disease. 2. Cardiomegaly. ATED BY: TRISTIN LEÓN MD Condition at Discharge: Good Final Diagnosis/Problems List COPD exacerbation Acute on chronic respiratory failure Hypertensive urgency Cardiomegaly Prediabetes Mellitus Balanitis Hypertension Discharge Disposition: Home Discharge Instruct/Medications Diet: Regular Activity: No Restrictions, As Tolerated Follow Up/Referral: 7 days at the discharge Clinic Medications: Continue Keflex 500mg q8hr for 5 days Discharge Statement: "Patient was advised to return to the ER or call 911 if any headaches, dizziness, shortness of breath, chest pain, abdominal pain, bleeding, fevers, or worsening of medical condition. Patient was counseled about treatment plan, medications, possible side effects, patientverbalized understanding. All questions were answered to the best of my ability. This discharge took greater then 30 minutes in planning, reviewing documentation, counseling the patient, and discussing with other team members." ASSESSMENT ASSESSMENT Assessment COPD exacerbation Acute respiratory failure Balanitis Diabetes Hypertension Hyperlipidemia Date of Service: Aug 27, 2024 Billing Provider: KARI CAIN MD Common Visit Codes: 81914-XNE/OBS DISCH DAY >30min RAYMUNDO DALEY RESIDENT Aug 27, 2024 14:52 KARI CAIN MD Aug 28, 2024 10:20
[2024-08-27] MEDS ORDERED: CLIN-188 PO (15:09)
[2024-08-27] MEDS ORDERED: CLINDAMYCIN HCL 150 MG CAP PO ONE (15:15)
[2024-08-27 16:00] VITALS: BP 125/86; PULSE 73; RESP 18; TEMP 97.4; O2SAT 98
[2024-08-27] MEDS ORDERED: CEPHALEXIN 250 MG CAP PO SCH (22:00)
== END 2024-08-27 17:15 | disposition home or self-care (01) | DRG 189 ==
LOC: ER 10:38 → OVERFLOW 19:51 → WEST WING 19:56
PROVIDERS: ADMIT Internal Medicine; ATTEND Internal Medicine
DX: J96.20 Acute and chronic respiratory failure, unspecified whether with hypoxia or hypercapnia (principal); J44.1 Chronic obstructive pulmonary disease with (acute) exacerbation; I16.0 Hypertensive urgency; Z20.822 Contact with and (suspected) exposure to COVID-19; I11.9 Hypertensive heart disease without heart failure; N48.1 Balanitis; S30.842A External constriction of penis, initial encounter; E11.9 Type 2 diabetes mellitus without complications; Z87.891 Personal history of nicotine dependence; Z88.0 Allergy status to penicillin; Z79.4 Long term (current) use of insulin; Z79.899 Other long term (current) drug therapy; W49.09XA Other specified item causing external constriction, initial encounter; Y93.89 Activity, other specified; Y92.89 Other specified places as the place of occurrence of the external cause; Y99.8 Other external cause status
CPT/HCPCS: 36415; 71046; 80048; 80307; 81001; 83036; 83880; 84484; 85025; 87426; 87804; 93005; 93306; G0378; J1885

== ENCOUNTER 2024-09-01 09:21 | Emergency (ER) | payer MEDICARE, MEDICAID ==
[~2024-09-01] VITALS: Ht 175.3 cm; Wt 84.0 kg
[~2024-09-01 09:21] MED LIST changes: +CLIN-188 PO
--- NOTE | 2024-09-01 10:23 | ED.PDOC ---
SOB-HPI HPI Comments 69-year-old male presents with a chief complaint of COPD SOB. Patient is a frequent visitor to this ER with last being seen on August 25, 2024. Patient states that he "cannot get his mediations from the pharmacy. his daughter has to work and can only drop him off here. he has been having sob for 2 years but no new symptoms. Patient was prescribed multiple medications and inhalers but has not picked them up from the pharmacy. Patient reports that he "can get a ride to the ER, but not across the street to the pharmacy". No other symptoms or modifying factors present at this time. Chief Complaint: Shortness of Breath Time Seen by MD: 09:44 Primary Care Provider: UNKNOWN Reviewed notes: Medications, Allergies Information Source: Patient Mode of Arrival: Ambulatory Severity: Moderate Timing: Days Duration: Intermittent Context: At Rest PE Risk Factors: None History of: COPD Prehospital treatment: None Modifying Factors: Inhaler If cough with SOB: Non-Productive Past Medical History PAST MEDICAL HISTORY: COPD, HTN Surgical History: Denies all surgeries Family History Family History: Reviewed,noncontributory to illness, Unknown Social History Smoker: Quit Less Than 1 Year Alcohol: Denies ETOH Use Drugs: Denies Drug Use Lives In: Home Constitutional: denies: chills, diaphoresis, fatigue, fever, malaise, sweats, weakness, others EENTM: denies: blurred vision, double vision, ear bleeding, ear discharge, ear drainage, ear pain, ear ringing, eye pain, eye redness, hearing loss, mouth pain, mouth swelling, nasal discharge, nose bleeding, nose congestion, nose pain, photophobia, tearing, throat pain, throat swelling, voice changes, others Respiratory: reports: shortness of breath; denies: cough, hemoptysis, orthopnea, SOB at rest, SOB with excertion, stridor, wheezing, others Cardiovascular: denies: chest pain, dizzy spells, diaphoresis, Dyspnea on exertion, edema, irregular heart beat, left arm pain, lightheadedness, palpitations, PND, syncope, others Gastrointestinal: denies: abdomen distended, abdominal pain, blood streaked bowels, constipated, diarrhea, dysphagia, difficulty swallowing, hematemesis, melena, nausea, poor appetite, poor fluid intake, rectal bleeding, rectal pain, vomiting, others Genitourinary: denies: burning, dysuria, flank pain, frequency, hematuria, incontinence, penile discharge, penile sore, pain, testicle pain, testicle swelling, urgency, others Neurological: denies: dizziness, fainting, headache, left sided numbness, left sided weakness, numbness, paresthesia, pre-existing deficit, right sided numbness, right sided weakness, seizure, speech problems, tingling, tremors, weakness, others Musculoskeletal: denies: back pain, gout, joint pain, joint swelling, muscle pain, muscle stiffness, neck pain, others Integumetry: denies: bruises, change in color, change in hair/nails, dryness, laceration, lesions, lumps, rash, wounds, others Allergic/Immunocompromised: denies: Difficulty Healing, Frequent Infections, Hives, Itching, others Hematologic/Lymphatic: denies: anemia, blood clots, easy bleeding, easy bruising, swollen glands, others Endocrine: denies: excessive hunger, excessive sweating, excessive thirst, excessive urination, flushing, intolerance to cold, intolerance to heat, unexp lained weight gain, unexplained weight loss, others Psychiatric: denies: anxiety, bipolar disorder, depression, hopeless, panic disorder, schizophrenia, sleepless, suicidal, others All Other Systems: Reviewed and Negative Physical Exam General Appearance: No Apparent Distress, Normal HEENT: Normal ENT Inspection, Pharynx Normal, TMs Normal Neck: Full Range of Motion, Non-Tender, Normal, Normal Inspection Respiratory: Chest Non-Tender, Lungs Clear, No Accessory Muscle Use, No Respiratory Distress, Normal Breath Sounds Cardiovascular: No Edema, No JVD, No Murmur, No Gallop, Normal Peripheral Pulse s, Regular Rate/Rhythm Breast Exam: Deferred Gastrointestinal: No Organomegaly, Non Tender, No Pulsatile Mass, Normal Bowel Sounds, Soft Genitalia: Deferred Pelvic: Deferred Rectal: Deferred Extremities: No calf tenderness, Normal capillary refill, Normal inspection, Normal range of motion, Non-tender, No pedal edema Musculoskeletal : Apperance: Normal Neurologic: Alert, chronometer assembler and adjuster II-XII nml as Tested, No Motor Deficits, Normal Affect, Normal Mood, No Sensory Deficits Cerebellar Function: Normal Reflexes: Normal Skin: Dry, Normal Color, Warm Lymphatic: No Adenopathy Was a procedure done? Was a procedure done?: No Differential Dx Differential Diagnosis: Anxiety, Asthma, Bronchitis, CHF, COPD, Panic Attack, Pneumonia, Pneumothorax, Respiratory Distress, Other (noncompliance) X-Ray, Labs, Meds, VS Vital Signs Date Time Temp Pulse Resp B/P (MAP) Pulse Ox O2 Delivery O2 Flow Rate FiO2 09/01/24 09:54 97.5 74 18 147/107 (120) 95 Time of 1ST Reevaluation: 10:14 Reevaluation 1ST: Unchanged Patient Education/Counseling: Diagnosis, Treatment, Prognosis, Need For Follow Up Family Education/Counseling: No Family Present Additional Information pt has copd and reports that he does not have active symptoms but has been having sob for 2 years. he was admitted to the hospital a wek ago for copd, and prescribed medications, including an inhaler, but his daughter cannot take him to the pharmacy to get the prescriptions filled and dropped him off here. unfortunately, i am unable to help ,since he has his medications waiting for him. his daughter should take him there instead of the ER Departure 1 Departure Time of Disposition: 11:55 Impression: Primary Impression: Medication refill Additional Impression: COPD (chronic obstructive pulmonary disease) Qualified Codes: J44.9 - Chronic obstructive pulmonary disease, unspecified Disposition: 01 HOME / SELF CARE / HOMELESS Condition: Good Discharged With: Self Critical Care Note Critical Care Time?: No Stability Stability form required: No Heart Score Heart Score: Heart Score Response (Comments) Value History N/A 0 EKG N/A 0 Age N/A 0 Risk Factors N/A 0 Troponin N/A 0 Total 0 I personally scribed for UZRI SOTO MD ([email or web address]) on 09/01/24 at 10:23. Electronically submitted by Delta Obrien ([email or web address]). ZURI SOTO MD Sep 01, 2024 10:23
[2024-09-01 12:13] VITALS: BP 178/97; PULSE 78; RESP 16; TEMP 98; O2SAT 95
== END 2024-09-01 12:14 | disposition home or self-care (01) ==
LOC: ER 09:21
DX: J44.9 Chronic obstructive pulmonary disease, unspecified (principal); I10 Essential (primary) hypertension; Z76.0 Encounter for issue of repeat prescription